=== PATIENT | male | born 1950 | race Caucasian/White ===

== ENCOUNTER 2017-10-20 22:29 | Emergency (ER) | payer OTHER ==
[2017-10-20 22:37] VITALS: BP 171/109; PULSE 84; TEMP 98.1; BMI 25.8
[2017-10-20] MEDS ORDERED: SULFAMETHOXAZOLE/TRIMETHOPRIM 800MG/160MG D.S. TABLET PO ONE (23:36)
[2017-10-20] MEDS ORDERED: SULFAMETHOXAZOLE/TRIMETHOPRIM 800MG/160MG D.S. TABLET ONE (23:39)
--- NOTE | 2017-10-20 23:41 | PDOC ---
History of Present Illness - General Chief Complaint: Redness To Affected Area Stated Complaint: SPLINTER IN ABD Time Seen by Provider: 10/20/17 23:01 History Source: Patient Exam Limitations: No Limitations - History of Present Illness Initial Comments: 10/20/17 23:37 This is a 67-year-old male who comes in complaining of a splinter in his lower abdominal wall area. Patient said he got a splinter there approximately 2 days ago and tried to take it out but thinks some may have been left inside there as there is no hard area. Patient said it is not painful. Patient denies any other complaints. Patient is otherwise healthy. PAST MEDICAL HISTORY: no significant history PAST SURGICAL HISTORY: no significant history FAMILY HISTORY: no pertinant history SOCIAL HISTORY: Pt lives with family and is employed. MEDICATIONS: reviewed ALLERGIES: As per nursing notes Review of Systems General: No fevers or chills, no weakness, no weight loss HEENT: No change in vision. No sore throat,. No ear pain CardioVascular: No chest pain or shortness of breath Respiratory:No cough, or wheezing. Gastrointestinal: no nausea, vomitting, diarrhea or constipation, No rectal bleeding Genitourinary: No dysuria, hematuria, or frequency Musculoskeletal: No joint or muscle pain or swelling Neurologic: No headache, vertigo, dizziness or loss of consciousness Psychiatric: nor depression Skin: Foreign body abdominal wall Endocrine: no increased thirst or abnormal weight change Allergic: no skin or latex allergy All other systems reviewed and normal GENERAL: The patient is awake, alert, and fully oriented, in no acute distress. HEAD: Normal with no signs of trauma. EYES: Pupils equal, round and reactive to light, extraocular movements intact, sclera anicteric, conjunctiva clear. EXTREMITIES: Normal range of motion, no edema. ABDOMINAL WALL: There is a small area of induration with very minimal area of questionable. Once. There is no tenderness to the area. There is no palpable foreign body. NEUROLOGICAL: Normal speech, normal gait. grossly intact PSYCH: Normal mood, normal affect. SKIN: Warm, Dry, normal turgor, no rashes or lesions noted. Procedure note attempted foreign body removal Area was cleaned with Betadine and anesthetized with 1% lidocaine no epi Area of firmness was incised but no foreign body. And Band-Aid were placed patient tolerated well Assessment and plan: This is a 67-year-old male with partial foreign body in his lower anterior abdominal wall. Foreign body appears to be superficial but was unable to located and removed it. It is possible that there is no foreign body but just some mild induration and firmness from where the foreign body was removed. Recommended that patient be started on some antibiotics in case of infection and to make sure my attempt to remove the foreign body does not introduce more infection deeper. Patient given first dose of Bactrim in the emergency room and will continue it twice a day for 5 days Past History - Past Medical History Home Medications: Ambulatory Orders Sulfamethoxazole/Trimethoprim [Bactrim DS -] 1 tab PO BID #10 tablet 10/20/17 - Suicide/Smoking/Psychosocial Hx Smoking History: Never smoked *Physical Exam - Vital Signs Last Vital Signs Temp Pulse Resp BP Pulse Ox 98.1 F 84 16 171/109 98 10/20/17 22:31 10/20/17 22:31 10/20/17 22:31 10/20/17 22:31 10/20/17 22:31 *DC/Admit/Observation/Transfer Diagnosis at time of Disposition: Foreign body of abdominal wall Qualifiers: Encounter type: initial encounter Qualified Code(s): S30.851A - Superficial foreign body of abdominal wall, initial encounter - Discharge Dispostion Disposition: HOME Condition at time of disposition: Stable Admit: No - Referrals Referrals: Titi Rodriguez [Primary Care Provider] - - Patient Instructions Additional Instructions: Get the prescription for Bactrim and take one twice a day for 5 days. You can remove the Band-Aid tomorrow morning and then leave it open as a bandaid does appear to be irritating it. Return to the emergency department immediately with ANY new, persistent or worsening symptoms. Continue any medications as previously prescribed by your physician. You should follow up with your primary doctor as soon as possible regarding today's emergency department visit. . Please make sure your doctor reviews the results of your emergency evaluation. Thank you for coming to the Emergency Department today for your care. It was a pleasure to see you today. Please note that your evaluation is INCOMPLETE until you follow-up with your doctor. - Post Discharge Activity
== END 2017-10-20 23:49 | disposition home or self-care (01) ==
LOC: FER 22:29
CPT/HCPCS: 99281-25